=== PATIENT | female | born 1990 ===

== ENCOUNTER 2016-09-28 14:08 | Day surgery (SDC) | payer OTHER ==
[2016-09-28] MEDS ORDERED: LIDOCAINE HCL 1% PF 30 ML VIAL ONE (16:42)
--- NOTE | 2016-10-07 15:13 | RADRPT ---
EXAM DATE/TIME: 09/28/2016 15:51 [place] COMPARISON: No previous studies available for comparison. [facility] COMPARISON: [facility], Thyroid [facility], Aug 25 2015 INDICATIONS : Thyroid nodule. MEDICAL HISTORY : Thyroid nodule. SURGICAL HISTORY : None. ENCOUNTER: Subsequent ACUITY: 1 month PAIN SCORE: 0/10 LOCATION: Left neck ORGAN: Left thyroid lobe SPECIMENS: Five core specimen(s) submitted for pathologic evaluation. DEVICE: 22 gauge Tem[place] needle Post procedure scanning reveals no hematoma or other complication. The possibility does exist that the tissue obtained will be non-diagnostic. If the sample is non-renaldo gnostic a repeat biopsy or surgical biopsy may need to be performed. TECHNIQUE: 1. Ultrasound guidance for needle biopsy. 2. Needle biopsy. The risks, benefits, and alternatives to ultrasound guided needle biopsy were explained to the patien t in detail including the risk of bleeding and infection. Written and verbal informed consent was ob tained. With the patient on the ultrasound table, images were obtained. Overlying skin was prepped and drape d in the usual sterile fashion and Lidocaine was utilized as a local anesthetic. A needle was advanced into the identified target and the number of specimens as above obtained and meléndez bmitted for pathologic evaluation. The patient tolerated the procedure well and left the ultrasound suite in stable condition. CONCLUSION: Uncomplicated ultrasound guided needle biopsy of the nodule in the left lobe. Trever Alberto MD on October 07, 2016 at 15:11 Board Certified Radiologist. This report was verified electronically.
== END 2016-09-28 16:45 | disposition home or self-care (01) ==
LOC: HRAD 14:08 → HRIP 14:09 → HRAD 16:45
PROVIDERS: ATTEND Internal Medicine
DX: E04.1 Nontoxic single thyroid nodule (principal)
CPT/HCPCS: 10022; 76942; 88172; 88173